=== PATIENT | female | born 1975 | race American Indian/Alaskan Native ===

== ENCOUNTER 2017-04-04 10:17 | Outpatient (CLI) | payer OTHER ==
[2017-04-04] MEDS ORDERED: NACL ONE (12:48)
--- NOTE | 2017-04-04 14:27 | Cat Scan Report ---
CT ABDOMEN AND PELVIS WITHOUT CONTRAST INDICATION: Left lower quadrant pain. COMPARISON: 11/24/2013 FINDINGS: Abdomen and pelvis CT performed following oral contrast only. LUNG BASES: Slight nonspecific distal esophageal prominence. ABDOMEN: Please note that sensitivity to detect small visceral lesions is limited due to the absence of intravenous contrast. Grossly unremarkable unenhanced liver, spleen, gallbladder, pancreas, adrenals, nonaneurysmal abdominal aorta, IVC, nonhydronephrotic kidneys and opacified small bowel. Moderate ascending and transverse colon stool/possible constipation. Normal appendix. No ascites or size significant adenopathy. Fat-containing umbilical hernia with a transverse neck of 3.5 cm and subjacent nonobstructive small bowel, axial image 240, series 2, amongst others. PELVIS: Myomatous uterus again noted with an approximately 2.3 cm partly exophytic fundal fibroid on the right. Small left hemipelvic phleboliths. Suboptimally distended and assessed urinary bladder. Unremarkable rectosigmoid. No free fluid or significant adenopathy. Unremarkable bones. CONCLUSION: No acute CT abnormality with myomatous uterus again noted and few other incidental findings, as above. Please correlate. Thank you for the opportunity to participate in this patient's care.
== END 2017-04-04 10:18 | disposition home or self-care (01) ==
LOC: CT 10:17
PROVIDERS: ATTEND Emergency Medicine
DX: K42.9 Umbilical hernia without obstruction or gangrene (principal); D25.9 Leiomyoma of uterus, unspecified; I87.8 Other specified disorders of veins; N32.89 Other specified disorders of bladder
CPT/HCPCS: 74176